=== PATIENT | male | born 1960 | race Caucasian/White ===

== ENCOUNTER 2017-08-02 08:40 | Day surgery (SDC) | payer OTHER ==
[~2017-08-02] VITALS: Ht 177.8 cm; Wt 106.6 kg
[2017-08-02] VITALS (8 sets, daily range): BP systolic 104–115; BP diastolic 50–68; PULSE 54–61; RESP 16–29; Ht 177.8 cm; Wt 106.6 kg
[~2017-08-02 08:40] MED LIST: BROMFENAC SODIUM 1.7 ML OPH DROP OPER SCH; CYCLOPENTOLATE 2% 2 ML OPH OPER SCH; LACTATED RINGER'S 1,000 ML IV SCH; LIDOCAINE 3.5% GEL TUBE OPER ONE; MOXIFLOXACIN 0.5% 3 ML OPH OPER SCH; PHENYLephrine 10% 5 ML OPH OPER SCH; TETRACAINE 0.5% 4 ML OPH OPER SCH; TROPICAMIDE 1% 3 ML OPH OPER SCH
[2017-08-02] MEDS ORDERED: SPIR100T31 PO (08:59)
[2017-08-02] MEDS ORDERED: GABA300C16 PO (08:59)
[2017-08-02] MEDS ORDERED: FURO40TA4 PO (08:59)
[2017-08-02] MEDS ORDERED: FOLI-49 PO (09:00)
[2017-08-02] MEDS ORDERED: LIDOCAINE 3.5% GEL TUBE ONE (09:26)
--- NOTE | 2017-08-02 10:01 | HPN ---
Date/Time of Note Date/Time of Note DATE: 08/02/17 TIME: 10:00 Interval H&P Admission Note Pt. seen H&P reviewed: No system changes JULIANO MAYORGA D.O. Aug 02, 2017 10:01
[2017-08-02] MEDS ORDERED: TOBRAMYCIN 0.3% 3.5 GM OPH OINT ONE (10:19)
[2017-08-02] MEDS ORDERED: CARBACHOL 0.01% 1.5 ML OPH INJ ONE (10:19)
[2017-08-02] MEDS ORDERED: EPINEPHrine 1 MG INJ ONE (10:20)
[2017-08-02] MEDS ORDERED: TRYPAN BLUE 0.5 ML SYG IO ONE (10:20)
[2017-08-02] MEDS ORDERED: NA HYALURONATE/CHONDROITIN 0.5 ML SYG ONE (10:22)
[2017-08-02] MEDS ORDERED: FENTAnyl 50 MCG/ML VIAL IV PRN ×3 (10:30)
[2017-08-02] MEDS ORDERED: OXYCODONE/ACETAMINOPHEN (5/325) TAB PO PRN ×2 (10:30)
[2017-08-02] MEDS ORDERED: LABETALOL HCL 20MG INJ IV PRN (10:30)
[2017-08-02] MEDS ORDERED: METOCLOPRAMIDE 10 MG INJ IV PRN (10:30)
[2017-08-02] MEDS ORDERED: MEPERIDINE 25 MG INJ IV PRN (10:30)
[2017-08-02] MEDS ORDERED: hydrALAzine 20 MG INJ IV PRN (10:30)
[2017-08-02] MEDS ORDERED: ONDANSETRON 4 MG INJ IV PRN (10:30)
[2017-08-02] MEDS ORDERED: MIDAZOLAM 1 MG/ML 2 ML INJ IV PRN (10:30)
[2017-08-02] MEDS ORDERED: DIPHENHYDRAMINE 50 MG INJ IV PRN (10:30)
[2017-08-02] MEDS ORDERED: EPHEDrine SULFATE 50 MG/5 ML SYG IV PRN (10:30)
[2017-08-02] MEDS ORDERED: LIDOCAINE 1%/EPI 30 ML INJ INJ ONE (10:45)
[2017-08-02] MEDS ORDERED: NA HYALURONATE/CHONDROITIN 0.5 ML SYG RIGHT EYE ONE (10:45)
[2017-08-02] MEDS ORDERED: CARBACHOL 0.01% 1.5 ML OPH INJ RIGHT EYE ONE (10:45)
[2017-08-02] MEDS ORDERED: CEFAZOLIN 1 GM INJ ONE (11:00)
[2017-08-02] MEDS ORDERED: TOBRAMYCIN 0.3% 3.5 GM OPH OINT RIGHT EYE ONE (11:40)
--- NOTE | 2017-08-02 11:51 | SIPON ---
Date/Time of Note Date/Time of Note DATE: 08/02/17 TIME: 11:46 Operative Report Preoperative Diagnosis Hypermature white cataract, Rt eye Postoperative Diagnosis Hypermature white cataract, Rt.eye Operation/Procedure Performed Cataract extraction and intraocular lens implantation, Rt eye; Partial anterior vitrectomy , Rt eye Surgeon see signature line daycare assistant none Anesthesia: MAC Estimated blood loss: none Transfusion Required none Specimen none Grafts/Implants Bausch and Lomb L122UV IOL 17.50 Complications lens fragments loss JULIANO MAYORGA D.O. Aug 02, 2017 11:51
--- NOTE | 2017-08-03 11:39 | OPR ---
DATE OF OPERATION: 08/02/2017 SURGEON: Rocio Ramos DO. ANESTHESIOLOGIST: Dr. Unger. PREOPERATIVE DIAGNOSIS: Hypermature cataract, right eye. POSTOPERATIVE DIAGNOSIS: Hypermature cataract, right eye. PROCEDURE PLANNED: Extracapsular cataract extraction via manual removal of nucleus and partial anterior vitrectomy and intraocular lens implantation. PROCEDURE PERFORMED: Cataract extraction via phacoemulsification and intraocular lens implantation and partial anterior vitrectomy, right eye. CONSENT: It was discussed with patient in detailed possible complications which include but not limited to bleeding, retinal detachment , loss of lens and loss of vision, loss of the eye as an organ, possibility of multiple surgeries due to late stage of his cataract. The patient understood that he has no guaranty of improvement of vision and high risk for complications. The patient is aware of possible complications and agreed to have procedure done. Consent signed. It can be found in his chart. DESCRIPTION OF PROCEDURE: The patient was brought to the operating room in stable condition and placed on the operating table in supine position and his right eye was prepped for cataract surgery in routine sterile technique. Retractor was placed to hold his eyelid and clear cornea incision with keratome was performed. This was followed by injection of Viscoat agent and trypan blue dye. Then irrigation/aspiration was done to clear the anterior chamber from the blue dye. Additional Viscoat agent was instilled and capsulorrhexis was performed with cystotome and Utrata forceps. Then, paracentesis was made with Superblade. Then, Nagahara chopper and phaco tip was inserted into the anterior chamber and cortex material was removed via irrigation and aspiration and it was attempted to remove some pieces of nucleus. Then the phaco instrument was applied to the nucleus to hold it, a Nagahara chopper was held from opposite side of the nucleus. It was attempted to do horizontal chopper. During this manipulation, the nucleus was starting to disappear. A few attempts was done to lift the nucleus without success. Miostat was instilled in the anterior chamber. Additional Provisc agent was instilled and Bausch and Lomb, model L122UV,17.50 IOL was inserted into anterior chamber. Eventually corneal entrance incision was closed with 10-0 uninterrupted suture. Then anterior chamber was irrigated and aspirated. An air bubble was instilled to protect the cornea. TobraDex ointment was instilled into conjunctival sac and patch was placed over closed eyelid. Dictated By: ROCIO PARADA/MOLLY Conf#: [id number] DID#: [id number] MTDD
== END 2017-08-02 13:00 | disposition home or self-care (01) ==
LOC: SDS 08:40
PROVIDERS: ATTEND Ophthalmology
DX: H25.21 Age-related cataract, morgagnian type, right eye (principal); E66.9 Obesity, unspecified; Z68.33 Body mass index [BMI] 33.0-33.9, adult
CPT/HCPCS: 66984; J0171; J0690; V2630; Z7512; Z7610